=== PATIENT | female | born 1995 | race Caucasian/White ===

== ENCOUNTER 2023-06-29 12:36 | Outpatient (CLI) | payer OTHER ==
[2023-06-29] MEDS ORDERED: PRENATAL + DHA1 EAC1 PO (12:43)
[2023-06-29 13:20] LABS: HEMATOCRIT 30.3 % (36.0-45.00); HEMOGLOBIN 10.5 g/dL (12.0-15.00); MEAN CELL VOLUME 87.4 fL (80.00-100.00); MEAN CORPUSCULAR HEMOGLOBIN 30.4 pg (27.00-32.0); MEAN CORPUSCULAR HGB CONC 34.8 g/dl (32.0-36.0); PLATELET COUNT 241 K/uL (150-450); RED BLOOD COUNT 3.46 M/uL (4.00-6.00)
[2023-06-29 13:26] LABS: URINE APPEARANCE Turbid; URINE BILIRRUBIN Negative (NEGATIVE); URINE BLOOD Large; URINE COLOR Dark Yellow; URINE GLUCOSE Negative (NEGATIVE); URINE LEUKOCYTE Moderate; URINE NITRATE Negative
[2023-06-29 13:27] LABS: URINE RBC 702.9 uL (0.0-20.8); URINE WBC 702.7 uL (0.0-23.2)
[2023-06-29 13:47] LABS: BILIRUBIN TOTAL 0.33 mg/dL (0.3-1.2); CALCIUM 9.1 mg/dL (8.5-10.1); CREATININE SERUM 0.67 mg/dL (0.55-1.02); GFR 105.58; GLOBULINA 3.7 G/DL (2.4-3.5); POTASSIUM 3.79 mEq/L (3.5-5.1); TOTAL PROTEIN 6.7 gm/dL (6.4-8.2)
[2023-06-29 14:06] LABS: URINE BACTERIA > 9821.5 uL (0.0-1933); URINE EPITHELIAL CELLS > 201.7 uL (0.0-38.8); URINE PROTEIN 100 (NEGATIVE); URINE YEAST FEW /hpf
[2023-06-30] MEDS ORDERED: CEFUROXIME500 MG PO (08:17)
[2023-06-30] MEDS ORDERED: FEOSOL325 MG PO (08:17)
== END 2023-06-30 09:00 | disposition home or self-care (01) ==
LOC: OBS/DEL 12:36
PROVIDERS: ATTEND Specialist
DX: O23.43 Unspecified infection of urinary tract in pregnancy, third trimester (principal); N39.0 Urinary tract infection, site not specified; O99.013 Anemia complicating pregnancy, third trimester; Z3A.31 31 weeks gestation of pregnancy; O09.613 Supervision of young primigravida, third trimester

== ENCOUNTER 2023-08-21 14:15 | Inpatient (IN) | payer OTHER ==
[~2023-08-21] VITALS: Ht 154.9 cm; Wt 97.1 kg
[~2023-08-21 14:15] MED LIST: CEFUROXIME500 MG PO; FEOSOL325 MG PO; PRENATAL + DHA1 EAC1 PO
[2023-08-31] MEDS ORDERED: RINGERS SOLUTION,LACTATED 1,000 ML IV SCH (15:45)
[2023-08-31 16:02] LABS: HEMATOCRIT 34.3 % (36.0-45.00); HEMOGLOBIN 11.8 g/dL (12.0-15.00); MEAN CELL VOLUME 87.8 fL (80.00-100.00); MEAN CORPUSCULAR HEMOGLOBIN 30.3 pg (27.00-32.0); MEAN CORPUSCULAR HGB CONC 34.5 g/dl (32.0-36.0); PLATELET COUNT 235 K/uL (150-450); RED CELL DISTRIBUTION WIDTH 14.3 % (11.5-14.5)
[2023-08-31 16:24] LABS: URINE APPEARANCE Clear; URINE BILIRRUBIN Negative (NEGATIVE); URINE BLOOD Moderate; URINE COLOR Yellow; URINE GLUCOSE Negative (NEGATIVE); URINE LEUKOCYTE Moderate; URINE NITRATE Negative; URINE PROTEIN Trace (NEGATIVE); URINE UROBILINOGEN 0.2 E.U./dl
[2023-08-31 16:24] LABS: INR < 0.93; PARTIAL THROMBOPLASTIN TIME 28.4 SECONDS (22.0-34.0); PROTHROMBIN TIME 9.8 SECONDS (9.0-11.5)
[2023-08-31 16:25] LABS: URINE BACTERIA 3105.7 uL (0.0-1933); URINE EPITHELIAL CELLS 68.3 uL (0.0-38.8); URINE RBC 261.7 uL (0.0-20.8); URINE WBC 38.3 uL (0.0-23.2)
[2023-08-31 16:35] LABS: ALBUMIN 2.8 gm/dL (3.4-5.0); BILIRUBIN TOTAL 0.37 mg/dL (0.3-1.2); CALCIUM 9.7 mg/dL (8.5-10.1); CREATININE SERUM 0.65 mg/dL (0.55-1.02); GFR 108.53; GLOBULINA 3.9 G/DL (2.4-3.5); POTASSIUM 4.23 mEq/L (3.5-5.1); TOTAL PROTEIN 6.7 gm/dL (6.4-8.2)
[2023-09-01] MEDS ORDERED: PROMETHAZINE HCL 25 MG/ML AMPUL ONE (01:19)
[2023-09-01] MEDS ORDERED: MEPERIDINE HCL/PF 50 MG/ML VIAL IV ONE (01:30)
[2023-09-01] MEDS ORDERED: PROMETHAZINE HCL 25 MG/ML AMPUL IV ONE (01:30)
[2023-09-01] MEDS ORDERED: PROMETHAZINE HCL 25 MG/ML AMPUL IV STA (07:15)
[2023-09-01] MEDS ORDERED: MEPERIDINE HCL/PF 50 MG/ML VIAL IV STA (07:15)
[2023-09-01] MEDS ORDERED: OXYTOCIN 500 ML IV SCH (07:30)
[2023-09-01] MEDS ORDERED: CHLORHEXIDINE GLUCONATE 120 ML BOTTLE TOP ONE ×2 (07:38→10:45)
[2023-09-01] MEDS ORDERED: OXYTOCIN 20 UNITS/1000ML RL PIGGYBAG IV ONE ×2 (07:38→10:45)
[2023-09-01] MEDS ORDERED: ERYTHROMYCIN BASE 1 GM TUBE OP ONE ×2 (07:38→10:45)
[2023-09-01] MEDS ORDERED: CARBOPROST TROMETHAMINE 250 MCG/ML AMPUL IM ONE (10:31)
[2023-09-01] MEDS ORDERED: BENZOCAINE/MENTHOL 90 ML BOTTLE TOP SCH (10:39)
[2023-09-01] MEDS ORDERED: CARBOPROST TROMETHAMINE 250 MCG/ML AMPUL IM STA (10:40)
[2023-09-01] MEDS ORDERED: ACETAMINOPHEN 325 MG TABLET PO PRN (10:45)
[2023-09-01] MEDS ORDERED: OxyCODONE HCL/APAP UD (PERCOCET) PO PRN (10:45)
[2023-09-01] MEDS ORDERED: LIDOCAINE HCL 1% 200MG/20ML VIAL IJ ONE (10:45)
[2023-09-01] MEDS ORDERED: HYDROCORTISONE 2.5% 30 GM TUBE RECTAL SCH (13:00)
[2023-09-02 01:28] LABS: MEAN CELL VOLUME 87.8 fL (80.00-100.00); MEAN CORPUSCULAR HEMOGLOBIN 30.1 pg (27.00-32.0); MEAN CORPUSCULAR HGB CONC 34.1 g/dl (32.0-36.0); PLATELET COUNT 205 K/uL (150-450); RED BLOOD COUNT 2.52 M/uL (4.00-6.00); RED CELL DISTRIBUTION WIDTH 14.2 % (11.5-14.5)
[2023-09-02 01:29] LABS: HEMATOCRIT 22.2 % (36.0-45.00)
[2023-09-02 01:30] LABS: HEMOGLOBIN 7.6 g/dL (12.0-15.00)
[2023-09-03 01:25] LABS: HEMATOCRIT 27.6 % (36.0-45.00); MEAN CELL VOLUME 87.2 fL (80.00-100.00); MEAN CORPUSCULAR HGB CONC 35.1 g/dl (32.0-36.0); PLATELET COUNT 184 K/uL (150-450); RED BLOOD COUNT 3.17 M/uL (4.00-6.00); RED CELL DISTRIBUTION WIDTH 14.5 % (11.5-14.5)
[2023-09-03 01:34] LABS: MEAN CORPUSCULAR HEMOGLOBIN 30.5 pg (27.00-32.0)
[2023-09-03 01:35] LABS: HEMOGLOBIN 9.7 g/dL (12.0-15.00)
[2023-09-03] MEDS ORDERED: FERROUS SULFAT325 MG PO (06:46)
== END 2023-09-03 15:11 | disposition home or self-care (01) | DRG 806 ==
LOC: LDR 14:15 → OB/GYN 08-31 15:05 → LDR 08-31 15:05 → OB/GYN 09-01 10:36
PROVIDERS: ADMIT Specialist; ATTEND Specialist
PROC: 4A1HXCZ Monitoring of Products of Conception, Cardiac Rate, External Approach (ICD-10-PCS; 2023-08-31)
PROC: 10E0XZZ Delivery of Products of Conception, External Approach (ICD-10-PCS; principal; 2023-09-01)
PROC: 0HQ9XZZ Repair Perineum Skin, External Approach (ICD-10-PCS; 2023-09-01)
PROC: 0UQMXZZ Repair Vulva, External Approach (ICD-10-PCS; 2023-09-01)
DX: O70.0 First degree perineal laceration during delivery (principal); O23.43 Unspecified infection of urinary tract in pregnancy, third trimester; Z37.0 Single live birth; O75.89 Other specified complications of labor and delivery; O71.82 Other specified trauma to perineum and vulva; O99.02 Anemia complicating childbirth; N20.0 Calculus of kidney; D64.9 Anemia, unspecified; Z3A.40 40 weeks gestation of pregnancy